=== PATIENT | male | born 2000 | race Caucasian/White ===

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

== ENCOUNTER 2021-04-08 17:54 | Emergency (ER) | payer BC, SELFPAY ==
[2021-04-08 18:41] VITALS: BP 157/94; PULSE 73; RESP 14; TEMP 37; O2SAT 99; BMI 40.6
--- NOTE | 2021-04-08 19:16 | HMH.EDUTC ---
[facility] [place] Disposition Clinical Impression: Allergic reaction Qualifiers: Encounter type: initial encounter Qualified Code(s): T78.40XA - Allergy, unspecified, initial encounter Disposition: Home, Self-Care Condition on Discharge: Good Instructions: DI for General Allergic Reactions Additional Instructions: Try to identify and Avoid contact with the offending substance. Don't start the oral steroids until tomorrow. Take the benedryl regularly for the next few days. It will make you drowsy, so don't take it if you have work or drive. Follow up with your regular doctor. GO TO THE ER FOR ANY WORSENING SYMPTOMS OR CONCERNS Prescriptions: diphenhydrAMINE HCL [Diphenhydramine HCl] 25 mg PO Q6HP PRN #30 cap PRN Reason: Itching Transmission Status: Received by [id number] methylPREDNISolone [Medrol] 4 mg PO DIRECTED 6 Days #21 packet Transmission Status: Received by [id number] Referrals: Santy Proctor MD [Primary Care Provider] - Time of Disposition: 19:32 Medical Decision Making - Medical Records Medical records reviewed: No: I reviewed the patient's medical records. - Gerardo Inquiry Pt receiving controlled substance: No Vital Signs: 04/08/21 18:41 04/08/21 19:48 Temperature 98.6 F 98.6 F Temperature Source Oral Pulse Rate 73 Pulse Rate [Left] 73 Respiratory Rate 14 14 Blood Pressure 157/94 H Blood Pressure [Right Arm] 157/94 H Blood Pressure Mean [Right Arm] 115 02 Sat by Pulse Oximetry 99 Orders (Tests/Meds): ED MEDICATIONS Discontinued Medications Generic Name Dose Route Start Last Admin Trade Name Freq PRN Reason Stop Dose Admin Methylprednisolone Sodium Succinate 125 mg 04/08/21 19:21 04/08/21 19:25 Methylprednisolone Sod Succ 125mg Vial IM 04/08/21 19:22 125 mg ONCE ONE Administration [facility] [place] HPI - General Stated complaint: allergic reaction Time Seen by Provider: 04/08/21 19:16 Mode of Arrival: Ambulatory Source of Information: Patient Limitations: No Limitations Description of Symptoms (Recalled from Triage Doc. by RN): pt states he has had a rash on his face x4 days. pt states it started tues. pt believes he is having some sort of allergic reaction but unsure of the offending substance. HEENT Symptoms (Recalled from RN notes): No Resp Symptoms (Recalled from RN notes): No Skin Symptoms (Recalled from RN notes): Yes MS Symptoms (Recalled from RN notes): No Functional Status (Recalled from RN notes): wnl - History of Present Illness Provider Complaint: He states that he has had itching and swelling of his face for the past 2 days. He thinks that he is allergic to that he came into contact with. - Related Data Previous Rx's Medication Instructions Recorded diphenhydrAMINE HCL 25 mg PO Q6HP PRN #30 cap 04/08/21 [Diphenhydramine HCl] methylPREDNISolone [Medrol] 4 mg PO DIRECTED 6 Days #21 04/08/21 packet Allergies Allergy/AdvReac Type Severity Reaction Status Date / Time No Known Allergies Allergy Verified 04/08/21 18:44 - Worker's Comp Is this a Worker's Comp case?: No [facility] History - Hepatitis A Screen Drug use history?: No High risk sexual behaviors?: No History of sexually transmitted infection?: No Currently employed?: No Childcare worker?: No Do you have indoor plumbing?: Yes Do you have electricity?: Yes Attestation statement:: This patient has been screened for Hepatitis A risk factors. I have reviewed the patient's past medical history: Yes ROS Obtained: Yes All systems reviewed & no additional complaints - Constitutional Constitutional: Denies body ache, Denies fever(s), Denies poor appetite, Denies malaise - Eyes Eyes: Denies blurry vision, Denies eye discharge, Denies itchy eyes - ENT Ears, Nose, Mouth, and Throat: Denies dizziness, Denies otalgia, Denies pain with swallowing, Denies throat swelling - Cardiovascular Cardiovascular: Denies chest pain - Respiratory Resp
[2021-04-08 19:48] VITALS: BP 157/94; PULSE 73; RESP 14; TEMP 37
== END 2021-04-08 19:49 | disposition home or self-care (01) ==
PROVIDERS: Emergency Provider Nurse Practitioner Family; PCP Family Medicine
DX: T78.40XA Allergy, unspecified, initial encounter (principal)
CPT/HCPCS: 96372; 99202; G0463